=== PATIENT | male | born 2000 | race Caucasian/White ===

== ENCOUNTER 2018-03-23 23:30 | Emergency (ER) | payer OTHER ==
[~2018-03-23] VITALS: Ht 177.8 cm; Wt 52.2 kg
[2018-03-24] MEDS ORDERED: ROBAXIN500 MG PO (00:52)
[2018-03-24] MEDS ORDERED: NAPROSYN500 MG PO (00:52)
[2018-03-24 01:43] VITALS: BP 130/80
== END 2018-03-24 01:43 | disposition home or self-care (01) ==
LOC: M.ERS 23:30
DX: S06.0X0A Concussion without loss of consciousness, initial encounter (principal); S50.02XA Contusion of left elbow, initial encounter; V49.69XA Unspecified car occupant injured in collision with other motor vehicles in traffic accident, initial encounter; Y93.89 Activity, other specified; Y92.89 Other specified places as the place of occurrence of the external cause; Y99.8 Other external cause status

== ENCOUNTER 2018-05-31 01:38 | Emergency (ER) | payer OTHER ==
[~2018-05-31] VITALS: Ht 180.3 cm; Wt 51.7 kg
[~2018-05-31 01:38] MED LIST: NAPROSYN500 MG PO; ROBAXIN500 MG PO
[2018-05-31 02:32] LABS: ANION GAP 10 mmol/L (7-16); BUN 20 mg/dL (7-18); CHLORIDE 102 mmol/L (98-107); CO2 28 mmol/L (21-32); CREATININE 0.8 mg/dL (0.6-1.3); GLUCOSE 91 mg/dL (70-99); POTASSIUM 3.8 mmol/L (3.5-5.1); SODIUM 140 mmol/L (136-145); TROPONIN-I LEVEL <0.06 ng/mL (<0.06)
[2018-05-31] MEDS ORDERED: FLEXERIL PO (04:32)
[2018-05-31 04:41] VITALS: BP 107/60
--- NOTE | 2018-05-31 13:10 | EKG ---
[place] [address] ELECTROCARDIOGRAM REPORT Name: YOLY MARQUIS Room: [facility]#: [id number] Admission: 05/31/18 Attend Phys: Discharge: 05/31/18 Date of : [birth year] Report #: [id number] THIS REPORT FOR: //name// [facility] ED Test Date: 2018-05-31 Test Time: 02:01:47 Pat Name: YOLY MARQUIS Department: Room: Gender: M [employer] Attendant: GERALDO : 2000 Requested By: Misael Carranza Order Number: [id number] MD: Tom Jose Measurements Intervals [place] Rate: 82 P: 47 PA: 161 QRS: 53 QRSD: 113 T: 61 QT: 367 QTc: 429 Interpretive Statements Sinus arrhythmia with junctional escape beats Borderline intraventricular conduction delay Baseline wander in lead(s) V3 Compared to ECG 11/12/2014 17:58:00 Sinus bradycardia no longer present Electronically Signed On 05-31-2018 13:10:29 CDT by Tom Jose [email or web address] <ELECTRONICALLY SIGNED> By: Tom Jose MD, [facility] 05/31/18 1310 0 020 Tom Jose MD, [facility] /EPI
== END 2018-05-31 04:40 | disposition home or self-care (01) ==
LOC: M.ERS 01:38
PROVIDERS: Emergency Medicine Emergency Medical Services
DX: R07.81 Pleurodynia (principal)